=== PATIENT | female | born 1960 | race Caucasian/White ===

== ENCOUNTER 2022-04-20 21:16 | Observation (INO) | payer BC ==
[~2022-04-20] VITALS: Ht 154.9 cm; Wt 52.6 kg
[2022-04-20 21:21] VITALS: BP_SYST 158
--- NOTE | 2022-04-20 21:27 | NUR ---
SUDDEN OSET OF CHEST PAIN WHILE ON A MEETING RADIATES TO HER NECK AND LEFT ARM, PT STATED THAT CP IS NON PROVOKE. SHE STATED THAT SHE ALSO HAVE HEARTBURN, DENIES N/V, DENIES SOB. PT AAOX4, EKG DONE. WILL CONTINUE TO MONITOR.
[2022-04-20 22:29] LABS: BASOPHILS % (AUTO) 0.6 % (0.0-2.0); EOSINOPHILS # (AUTO) 0.1 K/uL (0.0-0.4); HEMATOCRIT 43.3 % (36-48); HEMOGLOBIN 14.9 g/dL (12.0-16.0); LYMPHOCYTES # (AUTO) 1.5 K/uL (1.0-5.5); LYMPHOCYTES % (AUTO) 19.7 % (20.5-51.5); MEAN CORPUSCULAR HEMOGLOBIN 33 pg (27-31); MEAN CORPUSCULAR HGB CONC 34 % (32-36); MEAN CORPUSCULAR VOLUME 96 fL (79.0-98.0); MONOCYTES # (AUTO) 0.5 K/uL (0.0-1.0); MONOCYTES % (AUTO) 6.4 % (1.7-9.3); NEUTROPHILS # (AUTO) 5.6 K/uL (1.8-7.7); NEUTROPHILS % (AUTO) 72.3 % (40.0-70.0); PLATELET COUNT (AUTO) 250 K/uL (130-430); RED BLOOD CELL COUNT(AUTO) 4.52 MIL/uL (4.2-6.2); RED CELL DISTRIBUTION WIDTH 13.6 % (9.0-15.0); WHITE BLOOD COUNT (AUTO) 7.8 K/uL (4.8-10.8)
--- NOTE | 2022-04-20 22:59 | NUR ---
Patient ambulatory to bed 3 for evaluation and treatment
[2022-04-20 23:03] LABS: ANION GAP 7 (5-15); CALCIUM 9.4 mg/dL (8.4-11.0); CHLORIDE 102 mmol/L (98-107); CREATININE 0.71 mg/dL (0.55-1.30); GLUCOSE 100 mg/dL (70-99); POTASSIUM 3.3 mmol/L (3.5-5.1); UREA NITROGEN, BLOOD 14 mg/dL (8-21)
[2022-04-20 23:16] LABS: ALANINE AMINOTRANSFERASE 32 U/L (12-78); ASPARTATE AMINOTRANSFERASE 29 U/L (10-37); TOTAL BILIRUBIN 0.2 mg/dL (0.0-1.0)
[2022-04-20 23:20] LABS: GFR AFRICAN AMERICAN 107 mL/min (>90)
--- NOTE | 2022-04-21 01:19 | NUR ---
Pt resting comfortably in bed AOX4 VSS Able to make needs known NAD at this time Will continue to monitor
[2022-04-21] MEDS ORDERED: PRO40 PO (02:05)
[2022-04-21] MEDS ORDERED: ASPIRIN 325 MG TABLET PO ONE (02:15)
[2022-04-21] MEDS ORDERED: PANTOPRAZOLE SODIUM 40 MG TAB PO ONE (02:15)
--- NOTE | 2022-04-21 02:26 | NUR ---
Note bassamone in EDM - 04/21/22 at 0317 by [id number] Patient given written and verbal discharge instructions and verbalizes understanding. ER discussed with patient the results and treatment provided. Patient in stable condition. ID arm band removed. Patient educated on pain management and to follow up with PMD. Opportunity for questions provided and answered. Medication side effect fact sheet provided. Pt to wait in waiting room
--- NOTE | 2022-04-21 03:08 | NUR ---
Per [facility], Troponin @64 made aware
--- NOTE | 2022-04-21 05:57 | NUR ---
Admit bed requested Patient will be admitted to care of Admitted to Telemetry Observation unit. Diagnosis Chest Pain Inpatient (Yes or No) no Observation (Yes or No) yes Orientation concerns or request close to nursing station (Yes or No) no Covid Status negative On vent or bipap no Isolation requirements no Needs a sitter no From Home (Yes or if No enter name of facility) yes Requires Dialysis (Yes or No) no Med Rec Completed (Yes of No) yes
--- NOTE | 2022-04-21 06:08 | NUR ---
Pt resting comfortably in bed AOX4 Able to make needs known NAD at this time Will continue to monitor
--- NOTE | 2022-04-21 07:09 | NUR ---
Per Pt, no home meds
--- NOTE | 2022-04-21 07:10 | NUR ---
RECEIVED REPORT FROM JARRED WALKER. PT STABLE, IN BED FROM HOME, NAD, VSS, AAOx3, AWAITING ADDITIONAL DISPOSITION WITH PLAN OF CARE. PT AWAITING BED ON TELE AT THIS TIME.
--- NOTE | 2022-04-21 07:15 | NUR ---
Gave report to Lane
--- NOTE | 2022-04-21 08:15 | NUR ---
Patient will be admitted to care of Dr. Barajas. Admitted to Tele unit. Will go to room 118A. Belongings list completed. Complete and up to date summary report printed. SBAR report to be given at bedside with opportunity for questions.
--- NOTE | 2022-04-21 09:00 | NUR ---
ADMISSION NOTE RECEIVED PT FROM E.R. WITH DIAGNOSIS OF CHEST PAIN, PT WILL BE UNDER THE CARE OF DR. NEWELL. PT BIB JARRED GROVER , PT IS AAO, DENIES CHEST PAIN AT THIS TIME. WILL CONT TO MONITOR. PT EDUCATED ON THE USE OF CALL LIGHT , TV AND BED CONTROLS. ENCOURAGED TO CALL FOR ANY CHEST GUNJAN,, PAIN OR ANY OTHER CONCERNS.
--- NOTE | 2022-04-21 09:28 | NUR ---
CONSULT: CARDIO CHEST PAIN DR. RICARDO GARCIA [phone] S/W: DR. Radha GARCIA ANSWERED AND SAID HE WILL BE HERE LATER TO SEE THE PATIENT
[2022-04-21 10:00] VITALS: BP_SYST 119
[2022-04-21 11:30] VITALS: BP_SYST 127
[2022-04-21 16:35] VITALS: BP_SYST 105
--- NOTE | 2022-04-21 16:35 | NUR ---
Logo Admission Assessment - Care Management Last Saved By: Princess Beasley Last Saved On: 04/21/2022 4:34 PM (PT) Created By: Princess Beasley Created On: 04/21/2022 4:34 PM (PT) Patient Information Patient Name: ROSE KNOX [address] [place] [place] [address] SSN: : 1960 (age 62 years) Work Phone: [phone] Gender: Female Alternative Phone: Marital Status: Race: Race 2: Patient's Information Who was Interviewed? Answers: Patient What language does the patient speak? Answers: Croatian Admitting Facility Answers: *[facility] [[id number]] Admitting Diagnosis chest pain Advanced Care Planning (check all that apply) Answers: Advanced Directives? Notes: yes Additional Patient Notes fully vaccinated History and Prior Level of Function DME--PRIOR to Admission: Answers: No DME Cognitive--PRIOR to Admission: Answers: Alert & Orientated Home Setting--PRIOR to Admission: Answers: Private Home Notes: [facility] 2 steps lives w/spouse Was patient receiving Home Health Services prior to Admission? Answers: No Potential Barriers to Discharge Anticipated Discharge Disposition Answers: Home Does the patient have any potential barriers to DC? 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 [Production(jt--[id number])]
--- NOTE | 2022-04-21 17:25 | NUR ---
PAGED DR MORA/OSIRIS TO GET ORDERS FOR TYLENOL AND TO REPORT K-LEVEL OF 3.3.
[2022-04-21] MEDS ORDERED: POTASSIUM CHLORIDE 20 MEQ TAB.PRT.SR PO ONE (17:45)
[2022-04-21] MEDS ORDERED: ACETAMINOPHEN 325 MG TABLET PO PRN (17:45)
[2022-04-21] MEDS ORDERED: HYDROcodone/ACETAMIN 5-325 MG TAB (NORCO/ VICODIN) PO PRN (17:45)
[2022-04-21] MEDS ORDERED: NALOXONE HCL 0.4 MG/ML AMP (NARCAN) IVP PRN (17:45)
[2022-04-21] MEDS: ACETAMINOPHEN 325 MG TABLET PO PRN (18:04)
--- NOTE | 2022-04-21 18:52 | NUR ---
DR MORA WAS HERE , ASKED MD IF HE ALREADY SEEN PT, MD SAID HE SAW HER IN E.R. THIS AM.
[2022-04-21 19:30] VITALS: BP_SYST 108
--- NOTE | 2022-04-21 19:50 | NUR ---
INITIAL NOTE AT INITIAL ASSESSMENT, PATIENT IS RESTING IN BED, STABLE, NO SIGNS OF RESPIRATORY DISTRESS. PATIENT VERBALIZES NO CHEST PAIN OR DISCOMFORT. PLAN OF CARE FOR THE EVENING IS COMMUNICATED WITH PATIENT. PATIENT DEMONSTRATES BACK CORRECT USAGE OF CALL LIGHT AT THIS TIME. BED IS LOCKED, ALARMED, AND AT THE LOWEST LEVEL. FALL, AND SAFETY PRECAUTIONS WILL BE TAKEN THROUGHOUT THE SHIFT.
[2022-04-22 01:54] VITALS: BP_SYST 102
--- NOTE | 2022-04-22 06:30 | NUR ---
CLOSING NOTE PATIENT HAD NO CHEST PAIN OR PRESSURE DURING THE SHIFT. AT THIS TIME, PATIENT IS STABLE, NO SIGNS OF RESPIRATORY DISTRESS. BED IS LOCKED, ALARMED, AND AT THE LOWEST LEVEL. FALL, AND SAFETY PRECAUTIONS HAVE BEEN IN PLACE THROUGHOUT THE SHIFT. WILL CONTINUE TO MONITOR UNTIL SHIFT REPORT IS GIVEN AT BEDSIDE TO AM NURSE.
[2022-04-22] MEDS: ACETAMINOPHEN 325 MG TABLET PO PRN (06:52)
[2022-04-22 07:00] LABS: CALCIUM 8.9 mg/dL (8.4-11.0); CREATININE 0.62 mg/dL (0.55-1.30); POTASSIUM 4.2 mmol/L (3.5-5.1)
[2022-04-22 08:05] VITALS: BP_SYST 131
[2022-04-22 12:07] VITALS: BP_SYST 133
--- NOTE | 2022-04-22 13:41 | NUR ---
D/C Patient Patient given medication reconciliation form and D/C instructions. Exit Care provided. Patient verbalized understanding. MD discussed with patient the results and treatment provided. Ambulatory with steady gait for discharge to home. Patient in stable condition, ID band removed. IV catheter removed, intact and dressing applied, no active bleeding. nO Rx given. Patient educated on pain management. All belongings sent with patient.
== END 2022-04-22 12:40 | disposition home or self-care (01) ==
LOC: SED 21:16 → STU 04-21 05:53
PROVIDERS: ADMIT Internal Medicine; ATTEND Internal Medicine
DX: K21.9 Gastro-esophageal reflux disease without esophagitis (principal); Z20.822 Contact with and (suspected) exposure to COVID-19; R07.89 Other chest pain; Z88.0 Allergy status to penicillin; Z79.899 Other long term (current) drug therapy
CPT/HCPCS: 80053; 82550; 83880; 85025; 84484 ×2; 36415 ×2; 93005; 71045; 99285; 87426; 80048; 83735; G0378 ×2